=== PATIENT | male | born 1985 | race Caucasian/White ===

== ENCOUNTER 2019-08-08 15:00 | Emergency (ER) | payer OTHER ==
--- NOTE | 2019-08-08 15:30 | ED Physician Documentation ---
PD HPI MAJOR TRAUMA - Stated complaint Stated Complaint: HEAD,R ARM, R LEG LAC - Chief complaint Chief Complaint: Trauma Ext - History obtained from History obtained from: Patient - History of Present Illness Mechanism of injury: Blow (he was topping a large evergreen tree, about 40 feet up in ladder, and says the tree top struck against him as he cut through it. it struck him in helmeted forehead, right forearm and right anterior thigh. Hurts in thigh for walking. No LOC, but dazed few moments.) Where injury occurred: Home (outside up in tree base.) Timing - onset: Today (shortly [employer].) Injury(ies) location: Head. No: Face, Neck, Chest Review of Systems Constitutional: denies: Fever, Chills, Myalgias Eyes: denies: Loss of vision, Decreased vision Ears: denies: Ear pain Throat: denies: Oral lesions / sores GI: reports: Diarrhea. denies: Nausea, Vomiting Skin: reports: Abrasion (s) (many abrasions on right dorsal foream. No full thicknesses. no FBs. Normal sensation in fingers.) PD PAST MEDICAL HISTORY - Past Medical History Cardiovascular: None Respiratory: None Neuro: None Endocrine/Autoimmune: None - Present Medications Home Medications: Ambulatory Orders Medication Instructions Recorded Confirmed Hydrocodone/Acetaminophen [Mcpherson 1 each PO Q6H PRN #15 tablet 08/08/19 5-325 Tablet] methocarbamoL [Robaxin] 500 mg PO Q6H PRN #20 tablet 08/08/19 - Allergies Allergies/Adverse Reactions: Allergies Allergy/AdvReac Type Severity Reaction Status Date / Time amoxicillin [From Augmentin] Allergy Hives Verified 08/08/19 15:22 clavulanic acid Allergy Hives Verified 08/08/19 15:22 [From Augmentin] PD ED PE NORMAL - Vitals Vital signs reviewed: Yes - General General: Alert and oriented X 3, No acute distress, Well developed/nourished - HEENT HEENT: Ears normal, Moist mucous membranes, Pharynx benign. No: Atraumatic (minimal abrasion right forehead, and is able to flex/ext at neck with good ROM. ) - Neck Neck: Supple, no meningeal sign - Cardiac Cardiac: RRR, No murmur - Respiratory Respiratory: Clear bilaterally - Abdomen Abdomen: Normal bowel sounds, Non tender, Non distended, No organomegaly, Other - Back Back: No CVA TTP, No spinal TTP - Derm Derm: Normal color, Warm and dry - Extremities Extremities: No tenderness to palpate, Normal ROM s pain, Other (right anterior thigh with muscle tenderness. right forear dorsally with multiple abrasions. right hand with swelling and focal tenderness distal 5th MC area. ) - Neuro Neuro: Alert and oriented X 3, No motor deficit, Normal speech Results - Vitals Vitals: Vital Signs - 24 hr 08/08/19 08/08/19 15:22 17:05 Temperature 36.5 C 37.3 C Heart Rate 81 74 Respiratory 16 16 Rate Blood Pressure 132/75 H 125/71 O2 Saturation 99 100 Oxygen O2 Source Room air - Rads (name of study) right ahnd Radiology: Prelim report reviewed (distal 5th MC fracture with minimal displacement/angulation. ), See rad report right thigh Radiology: Prelim report reviewed (no fractures), See rad report right forearm Radiology: Prelim report reviewed (no fractures), See rad report Procedures - Splint (location) right ulnar gutter Splint applied by: Tech Type of splint: Fiberglass, Ulnar gutter Other: Patient tolerated well, No complications, Neurovascular intact, Sling provided PD MEDICAL DECISION MAKING - ED course Complexity details: reviewed results, considered differential, d/w patient Departure - Departure Disposition: 01 Home, Self Care Clinical Impression: Abrasions of multiple sites Struck accidentally by falling object Qualifiers: Encounter type: initial encounter Qualified Code(s): W20.8XXA - Other cause of strike by thrown, projected or falling object, initial encounter Thigh contusion Qualifiers: Encounter type: initial encounter Laterality: right Qualified Code(s): S70.11XA - Contusion of right thigh, initial encounter Closed fracture of 5th metacarpal Qualifiers: Encounter type: initial encounter Metacarpal location: neck Fracture alignment: nondisplaced Laterality: right Qualified Code(s): S62.366A - Nondisplaced fracture of neck of fifth metacarpal bone, right hand, initial encounter for closed fracture Head contusion Qualifiers: Encounter type: initial encounter Contusion of head detail: scalp Qualified Code(s): S00.03XA - Contusion of scalp, initial encounter Condition: Stable Record reviewed to determine appropriate education?: Yes Instructions: ED Abrasion, ED Fx Boxer Follow-Up: Kj Maciel MD [Provider Admit Priv/Credential] - Prescriptions: Hydrocodone/Acetaminophen [Mcpherson 5-325 Tablet] 1 each PO Q6H PRN #15 tablet PRN Reason: Pain methocarbamoL [Robaxin] 500 mg PO Q6H PRN #20 tablet PRN Reason: Spasms Comments: Leave the splint on for the initial couple of days. The wounds underneath should be okay during that timeframe. At that point you can remove the splint and clean the wounds and apply new ointment and dressing and reapply the splint. For the other abrasions cleanse gently once or twice a day and apply some ointment. You likely to be sore in the muscles of the thigh and elsewhere as well as the fracture of the hand. Use some anti-inflammatory such as ibuprofen or naproxen 2-3 times daily and add Tylenol or hydrocodone if needed for worse pain. You could also use methocarbamol muscle relaxant for stiffness or spasms of the muscles. Your hand fracture will need to be splinted for likely about 4 weeks. Follow-up with orthopedics in about 1 to 1-1/2 weeks for reevaluation. At that point they will make sure it is healing well enough and likely change the splint as will probably not fit as well after the swelling is down. Activity as tolerated based on the injuries. Discharge Date/Time: 08/08/19 17:12
[2019-08-08] MEDS ORDERED: ACETAMINOPHEN 325 MG TABLET PO STA (15:39)
[2019-08-08] MEDS ORDERED: LIDOCAINE JELLY 2% 6 ML JEL.PF.APP TOP STA (15:39)
--- NOTE | 2019-08-08 16:53 | XRAY Report ---
Reason: felling tree and it struck him Procedure Date: 08/08/2019 Accession Number: [id number] / [id number] Procedure: XR - Hand 3 View RT CPT Code: Final Report FULL RESULT: EXAM: RIGHT HAND RADIOGRAPHY EXAM DATE: 08/08/2019 04:33 PM. CLINICAL HISTORY: Felling tree and it struck him. COMPARISON: None. TECHNIQUE: 3 views. FINDINGS: Bones: Oblique fracture of the distal fifth metacarpal with 2-3 mm of lateral displacement of the distal fracture fragment. No definite intra-articular extension. Joints: Normal. No subluxations. Soft Tissues: Regional soft tissue swelling. IMPRESSION: Mildly displaced distal fifth metacarpal fracture. [facility]
--- NOTE | 2019-08-08 16:58 | XRAY Report ---
Reason: felling tree and it struck him Procedure Date: 08/08/2019 Accession Number: [id number] / [id number] Procedure: XR - Forearm RT CPT Code: Final Report FULL RESULT: EXAM: RIGHT FOREARM RADIOGRAPHY EXAM DATE: 08/08/2019 04:35 PM. CLINICAL HISTORY: Felling tree and it struck him. COMPARISON: None. TECHNIQUE: 2 views. FINDINGS: Bones: No fractures or bone lesions of the forearm. Mildly displaced fifth metacarpal fracture partially demonstrated Joints: Normal. No effusions or subluxations in the visualized wrist or elbow joints. Soft Tissues: Normal. No soft tissue swelling. IMPRESSION: 1. No definite abnormality of the forearm. 2. Mildly displaced fifth metacarpal fracture. Refer to the hand report from today. [facility]
--- NOTE | 2019-08-08 16:59 | XRAY Report ---
Reason: felling tree and it struck him Procedure Date: 08/08/2019 Accession Number: [id number] / [id number] Procedure: XR - Femur 2V RT CPT Code: Final Report FULL RESULT: EXAM: RIGHT FEMUR RADIOGRAPHY EXAM DATE: 08/08/2019 04:36 PM. CLINICAL HISTORY: Felling tree and it struck him. COMPARISON: None. TECHNIQUE: 2 views. FINDINGS: Bones: Normal. No fracture or bone lesion. Joints: The visualized hip and knee joints are normal. No effusions. Soft Tissues: Normal. No soft tissue swelling. IMPRESSION: Normal femur radiography. [facility]
[2019-08-08 17:07] VITALS: BP 125/71
== END 2019-08-08 17:12 | disposition home or self-care (01) ==
LOC: ED 15:00
DX: S62.336A Displaced fracture of neck of fifth metacarpal bone, right hand, initial encounter for closed fracture (principal); S70.11XA Contusion of right thigh, initial encounter; S00.03XA Contusion of scalp, initial encounter; S00.81XA Abrasion of other part of head, initial encounter; S50.811A Abrasion of right forearm, initial encounter; W20.8XXA Other cause of strike by thrown, projected or falling object, initial encounter; Y93.H9 Activity, other involving exterior property and land maintenance, building and construction; Y92.007 Garden or yard of unspecified non-institutional (private) residence as the place of occurrence of the external cause
CPT/HCPCS: 29105; 73090; 73130; 73552; 99283; 99284; A9270